=== PATIENT | female | born 1985 | race African-American/Black ===

== ENCOUNTER 2022-10-20 23:21 | Emergency (ER) | payer OTHER ==
[2022-10-20 23:29] VITALS: BP 139/96; PULSE 109; RESP 18; TEMP 98.6; BMI 49.9
[2022-10-21] MEDS ORDERED: KETOROLAC TROMETHAMINE 30 MG/1 ML VIAL IM ONE (00:09)
[2022-10-21] MEDS ORDERED: LIDOCAINE 5% TOPICAL PATCH TP ONE (00:10)
[2022-10-21] MEDS ORDERED: KETOROLAC TROMETHAMINE 30 MG/1 ML VIAL ONE (00:24)
== END 2022-10-21 01:50 | disposition home or self-care (01) ==
LOC: JER 23:21
PROC: 3E0233Z Introduction of Anti-inflammatory into Muscle, Percutaneous Approach (ICD-10-PCS; principal; 2022-10-21)
DX: M54.50 Low back pain, unspecified (principal)
CPT/HCPCS: 99284-25

== ENCOUNTER 2022-10-21 15:29 | Emergency (ER) | payer OTHER ==
[2022-10-21 15:34] VITALS: BP 120/74; PULSE 69; RESP 18; TEMP 98.1; BMI 49.9
[2022-10-21 16:48] LABS: BASO % 1.3 % (0-2.0); EOS % 1.1 % (0-4.5); HEMATOCRIT 38.1 % (32.4-45.2); HEMOGLOBIN 12.4 GM/dL (10.7-15.3); LYMPH % 37.1 % (8-40); MCH 25.1 pg (25.7-33.7); MCHC 32.6 g/dl (32.0-36.0); MEAN CELL VOLUME 76.8 fl (80-96); MEAN PLT VOLUME 7.9 fl (7.5-11.1); MONO % 7.6 % (3.8-10.2); NEUT % 52.9 % (42.8-82.8); PLATELET COUNT 371 10^3/uL (134-434); RBC 4.97 M/mm3 (3.60-5.2); RDW 14.4 % (11.6-15.6); WHITE BLOOD COUNT 7.9 K/mm3 (4.0-10.0)
[2022-10-21 16:54] LABS: PH,URINE 5.5 (5.0-8.0); URINE APPEARANCE CLEAR; URINE BILIRUBIN NEGATIVE (NEGATIVE); URINE COLOR YELLOW; URINE GLUCOSE (UA) NEGATIVE (NEGATIVE); URINE KETONE NEGATIVE (NEGATIVE); URINE LEUK ESTERASE NEGATIVE (NEGATIVE); URINE NITRITE NEGATIVE (NEGATIVE); URINE PROTEIN NEGATIVE (NEGATIVE); URINE UROBILINOGEN 0.2 mg/dL (0.2-1.0)
[2022-10-21 16:58] LABS: HCG,QUALITATIVE URINE Negative
[2022-10-21 17:13] LABS: POTASSIUM 4.4 mmol/L (3.5-5.1)
[2022-10-21 17:15] LABS: BLOOD UREA NITROGEN 21.7 mg/dL (7-18); CALCIUM 9.9 mg/dL (8.5-10.1)
[2022-10-21 17:19] LABS: CREATININE 0.9 mg/dL (0.55-1.3)
[2022-10-21] MEDS ORDERED: KETOROLAC TROMETHAMINE 30 MG/1 ML VIAL IM ONE (18:45)
[2022-10-21] MEDS ORDERED: KETOROLAC TROMETHAMINE 30 MG/1 ML VIAL ONE (19:11)
[2022-10-21] MEDS ORDERED: CYCLOBENZAPRINE HCL 10 MG TABLET (FP) ONE (19:11)
[2022-10-21] MEDS ORDERED: CYCLOBENZAPRINE HCL 5 MG TABLET PO SCH (19:15)
== END 2022-10-21 19:25 | disposition home or self-care (01) ==
LOC: JERFT 15:29
PROC: 3E0233Z Introduction of Anti-inflammatory into Muscle, Percutaneous Approach (ICD-10-PCS; principal; 2022-10-21)
DX: M54.50 Low back pain, unspecified (principal); R35.0 Frequency of micturition; K59.00 Constipation, unspecified
CPT/HCPCS: 36415; 74176-TC; 80048; 81003; 84703; 85025; 87086; 99284-25

== ENCOUNTER 2023-01-29 14:58 | Emergency (ER) | payer OTHER ==
[2023-01-29 15:05] VITALS: BMI 49.9
[2023-01-29 16:29] LABS: BASO % 0.8 % (0-2.0); EOS % 3.5 % (0-4.5); HEMATOCRIT 38.1 % (32.4-45.2); HEMOGLOBIN 12.5 GM/dL (10.7-15.3); LYMPH % 23.2 % (8-40); MCH 25.3 pg (25.7-33.7); MCHC 32.8 g/dl (32.0-36.0); MEAN CELL VOLUME 77.2 fl (80-96); MEAN PLT VOLUME 8.3 fl (7.5-11.1); MONO % 5.5 % (3.8-10.2); PLATELET COUNT 393 10^3/uL (134-434); RBC 4.93 M/mm3 (3.60-5.2); RDW 14.7 % (11.6-15.6); WHITE BLOOD COUNT 9.5 K/mm3 (4.0-10.0)
[2023-01-29 16:37] LABS: INR 1.07 (0.83-1.09); PROTHROMBIN TIME (PATIENT) 12.4 SEC (9.7-13.0)
[2023-01-29 16:40] LABS: ACTIVATED PTT 38.9 SECONDS (25.2-36.5)
[2023-01-29 17:00] LABS: ALBUMIN 3.3 g/dl (3.4-5.0); BLOOD UREA NITROGEN 12.6 mg/dL (7-18); CALCIUM 8.7 mg/dL (8.5-10.1); MAGNESIUM 2.1 mg/dL (1.8-2.4)
[2023-01-29 17:05] LABS: BILIRUBIN,TOTAL 0.2 mg/dL (0.2-1)
[2023-01-29] MEDS ORDERED: ALBUTEROL SO4 2.5/IPRATROPIUM 0.5 INH SOL 3 ML VIAL.NEB. NEB ONE ×2 (17:07→17:10)
[2023-01-29] MEDS ORDERED: PSEUDOEPHEDRINE HCL 30 MG TABLET PO ONE (17:10)
[2023-01-29] MEDS ORDERED: SODIUM CHLORIDE 0.9% 500 ML INFUS.BAG IV ONE (17:11)
[2023-01-29 17:23] LABS: PH,URINE 7.5 (5.0-8.0); URINE APPEARANCE Clear; URINE BILIRUBIN Negative (NEGATIVE); URINE COLOR Yellow; URINE GLUCOSE (UA) Negative (NEGATIVE); URINE KETONE Negative (NEGATIVE); URINE LEUK ESTERASE Negative (NEGATIVE); URINE NITRITE Negative (NEGATIVE); URINE PROTEIN Negative (NEGATIVE); URINE UROBILINOGEN 0.2 mg/dL (0.2-1.0)
[2023-01-29 18:19] VITALS: BP 155/79; PULSE 104; RESP 24; TEMP 97.7
== END 2023-01-29 18:24 | disposition home or self-care (01) ==
LOC: MERGE 14:58 → JER 14:58
PROC: 3E0F7GC Introduction of Other Therapeutic Substance into Respiratory Tract, Via Natural or Artificial Opening (ICD-10-PCS; principal; 2023-01-29)
DX: R06.02 Shortness of breath (principal); J40 Bronchitis, not specified as acute or chronic; Z20.822 Contact with and (suspected) exposure to COVID-19
CPT/HCPCS: 0241U-QW; 36415; 71045-TC-FY; 80053; 81003; 83735; 84484; 85025; 85379; 85610; 85730; 87086; 93005; 93010; 99285-25

== ENCOUNTER 2023-01-30 09:59 | Inpatient (IN) | payer OTHER ==
[2023-01-30] MEDS ORDERED: DEXAMETHASONE SOD PHOSPHATE 10 MG/1 ML VIAL IVPUSH ONE (10:30)
[2023-01-30] MEDS ORDERED: MAGNESIUM SULFATE IN WATER 2 GM/50 ML IVPB IVPB ONE ×2 (10:31→10:53)
[2023-01-30] MEDS ORDERED: DEXAMETHASONE SOD PHOSPHATE 10 MG/1 ML VIAL ONE (10:53)
[2023-01-30 11:05] LABS: VENOUS BASE EXCESS -0.1 mmol/L (-2-2); VENOUS O2 SATURATION 83.9 % (70-80); VENOUS PCO2 43.1 mmHg (38-52); VENOUS PH 7.383 (7.310-7.410)
[2023-01-30] MEDS: ALBUTEROL SO4 2.5/IPRATROPIUM 0.5 INH SOL 3 ML VIAL.NEB. NEB SCH ×6 (11:10→21:43)
[2023-01-30 11:18] LABS: BASO % 0.2 % (0-2.0); HEMATOCRIT 37.5 % (32.4-45.2); HEMOGLOBIN 12.2 GM/dL (10.7-15.3); MCH 26.6 pg (25.7-33.7); MCHC 32.5 g/dl (32.0-36.0); MEAN CELL VOLUME 81.9 fl (80-96); MEAN PLT VOLUME 8.3 fl (7.5-11.1); MONO % 2.5 % (3.8-10.2); NEUT % 84.3 % (42.8-82.8); PLATELET COUNT 370 10^3/uL (134-434); RBC 4.58 M/mm3 (3.60-5.2); RDW 14.3 % (11.6-15.6); WHITE BLOOD COUNT 11.6 K/mm3 (4.0-10.0)
[2023-01-30 11:23] LABS: INR 1.16 (0.83-1.09); PROTHROMBIN TIME (PATIENT) 13.4 SEC (9.7-13.0)
[2023-01-30 11:25] LABS: ACTIVATED PTT 39.6 SECONDS (25.2-36.5)
[2023-01-30 11:42] LABS: POTASSIUM 4.1 mmol/L (3.5-5.1)
[2023-01-30 11:44] LABS: CALCIUM 9.2 mg/dL (8.5-10.1)
[2023-01-30 11:45] LABS: ALBUMIN 3.5 g/dl (3.4-5.0); BLOOD UREA NITROGEN 10.2 mg/dL (7-18)
[2023-01-30 11:48] LABS: CREATININE 0.7 mg/dL (0.55-1.3)
[2023-01-30 11:49] LABS: TOT PROT 7.5 g/dl (6.4-8.2)
[2023-01-30 11:50] LABS: BILIRUBIN,TOTAL 0.3 mg/dL (0.2-1)
[2023-01-30 11:53] LABS: N-TERMINAL BNP 18.8 pg/ml (5-125)
[2023-01-30] MEDS ORDERED: IBUPROFEN 600 MG TABLET (FP) PO ONE ×2 (12:01→12:04)
[2023-01-30] MEDS ORDERED: ALBUTEROL SO4 2.5/IPRATROPIUM 0.5 INH SOL 3 ML VIAL.NEB. NEB ONE ×2 (12:03→15:37)
[2023-01-30] MEDS ORDERED: ACETAMINOPHEN 325 MG TABLET (FP) PO PRN (14:12)
[2023-01-30] MEDS ORDERED: ALBUTEROL SO4 0.042% IH SOL 1.25 MG/3 ML VIAL.NEB NEB PRN (16:40)
[2023-01-30] MEDS ORDERED: PSEUDOEPHEDRINE HCL 30 MG TABLET PO ONE (17:48)
[2023-01-30] MEDS ORDERED: guaiFENesin 600 MG TABLET.ER (FP) PO ONE (17:49)
[2023-01-30] MEDS ORDERED: PSEUDOEPHEDRINE HCL 60 MG TABLET ONE (17:52)
[2023-01-30] MEDS ORDERED: SODIUM CHLORIDE 0.9% 500 ML INFUS.BAG IV ONE (18:16)
[2023-01-30 20:15] VITALS: BMI 48.4
[2023-01-30] MEDS: ENOXAPARIN NA (PORCINE) 40 MG/0.4 ML DISP.SYRIN SQ SCH (21:37)
[2023-01-31] MEDS: ALBUTEROL SO4 2.5/IPRATROPIUM 0.5 INH SOL 3 ML VIAL.NEB. NEB SCH ×4 (07:10→20:59)
[2023-01-31] MEDS: guaiFENesin/D-METHORPHAN HB 10 ML UNIT-DOSE CUPS PO PRN ×2 (08:52→22:07)
[2023-01-31] MEDS: PANTOPRAZOLE 40 MG TABLET PO SCH (09:00)
[2023-01-31] MEDS: ENOXAPARIN NA (PORCINE) 40 MG/0.4 ML DISP.SYRIN SQ SCH ×2 (09:01→22:06)
[2023-01-31] MEDS: BUDESONIDE/FORMETEROL FUMARATE 160/4.5 mcg INHALER IH SCH ×2 (09:27→22:09)
[2023-01-31] MEDS ORDERED: methylPREDNISolone NA SUCC 40 MG/1 ML VIAL IVPUSH SCH (10:00)
[2023-01-31] MEDS ORDERED: predniSONE 20 MG TABLET (UD) PO SCH (10:00)
[2023-01-31 10:35] LABS: BASO % 0.1 % (0-2.0); EOS % 0.1 % (0-4.5); HEMATOCRIT 36.2 % (32.4-45.2); LYMPH % 8.7 % (8-40); MCH 26.1 pg (25.7-33.7); MCHC 33.2 g/dl (32.0-36.0); MEAN CELL VOLUME 78.6 fl (80-96); MEAN PLT VOLUME 8.2 fl (7.5-11.1); MONO % 4.5 % (3.8-10.2); NEUT % 86.6 % (42.8-82.8); PLATELET COUNT 402 10^3/uL (134-434); RBC 4.61 M/mm3 (3.60-5.2); RDW 14.7 % (11.6-15.6); WHITE BLOOD COUNT 19.9 K/mm3 (4.0-10.0)
[2023-01-31 10:39] LABS: INR 1.17 (0.83-1.09); PROTHROMBIN TIME (PATIENT) 13.6 SEC (9.7-13.0)
[2023-01-31 10:41] LABS: ACTIVATED PTT 35.3 SECONDS (25.2-36.5)
[2023-01-31 10:57] LABS: CALCIUM 9.1 mg/dL (8.5-10.1)
[2023-01-31 10:58] LABS: ALBUMIN 3.3 g/dl (3.4-5.0); BLOOD UREA NITROGEN 13.3 mg/dL (7-18)
[2023-01-31 11:01] LABS: PHOSPHOROUS 2.8 mg/dL (2.5-4.9)
[2023-01-31 11:02] LABS: BILIRUBIN,TOTAL 0.5 mg/dL (0.2-1)
[2023-01-31 11:03] LABS: TOT PROT 7.2 g/dl (6.4-8.2)
[2023-01-31] MEDS: predniSONE 20 MG TABLET (UD) PO SCH (22:03)
[2023-02-01] MEDS: ALBUTEROL SO4 2.5/IPRATROPIUM 0.5 INH SOL 3 ML VIAL.NEB. NEB SCH ×4 (08:20→20:43)
[2023-02-01 09:01] VITALS: RESP 20
[2023-02-01] MEDS: guaiFENesin/D-METHORPHAN HB 10 ML UNIT-DOSE CUPS PO PRN (09:38)
[2023-02-01] MEDS: PANTOPRAZOLE 40 MG TABLET PO SCH (09:38)
[2023-02-01] MEDS: predniSONE 20 MG TABLET (UD) PO SCH ×2 (09:38→21:30)
[2023-02-01] MEDS: ENOXAPARIN NA (PORCINE) 40 MG/0.4 ML DISP.SYRIN SQ SCH ×3 (09:38→21:38)
[2023-02-01] MEDS: BUDESONIDE/FORMETEROL FUMARATE 160/4.5 mcg INHALER IH SCH ×2 (09:39→21:31)
[2023-02-01 10:30] LABS: HEMATOCRIT 37.2 % (32.4-45.2); HEMOGLOBIN 11.6 GM/dL (10.7-15.3); MCH 24.8 pg (25.7-33.7); MCHC 31.1 g/dl (32.0-36.0); MEAN CELL VOLUME 79.6 fl (80-96); MEAN PLT VOLUME 8.3 fl (7.5-11.1); PLATELET COUNT 406 10^3/uL (134-434); RBC 4.67 M/mm3 (3.60-5.2); RDW 14.8 % (11.6-15.6); WHITE BLOOD COUNT 20.5 K/mm3 (4.0-10.0)
[2023-02-01 10:51] LABS: POTASSIUM 4.3 mmol/L (3.5-5.1)
[2023-02-01 10:56] LABS: ALBUMIN 3.2 g/dl (3.4-5.0); BLOOD UREA NITROGEN 16.8 mg/dL (7-18)
[2023-02-01 10:58] LABS: CREATININE 0.8 mg/dL (0.55-1.3)
[2023-02-01 11:00] LABS: BILIRUBIN,TOTAL 0.4 mg/dL (0.2-1)
[2023-02-01 11:11] LABS: ANISOCYTOSIS 2+; MACROCYTOSIS 0
[2023-02-01] MEDS: POLYETHYLENE GLYCOL (HEALTHYLAX) 3350 17 GM PACKET PO PRN (13:54)
[2023-02-01] MEDS: guaiFENesin/CODEINE 5 ML UNIT-DOSE CUPS PO PRN (13:54)
[2023-02-02] MEDS: ALBUTEROL SO4 2.5/IPRATROPIUM 0.5 INH SOL 3 ML VIAL.NEB. NEB SCH ×4 (07:40→20:27)
[2023-02-02 09:36] LABS: BASO % 0.1 % (0-2.0); HEMATOCRIT 36.9 % (32.4-45.2); MCH 25.2 pg (25.7-33.7); MCHC 32.5 g/dl (32.0-36.0); MEAN CELL VOLUME 77.7 fl (80-96); MEAN PLT VOLUME 8.2 fl (7.5-11.1); NEUT % 82.9 % (42.8-82.8); PLATELET COUNT 408 10^3/uL (134-434); RBC 4.75 M/mm3 (3.60-5.2); RDW 14.8 % (11.6-15.6); WHITE BLOOD COUNT 19.1 K/mm3 (4.0-10.0)
[2023-02-02] MEDS: predniSONE 20 MG TABLET (UD) PO SCH ×2 (09:58→21:32)
[2023-02-02] MEDS: guaiFENesin/CODEINE 5 ML UNIT-DOSE CUPS PO PRN ×2 (09:58→23:11)
[2023-02-02] MEDS: ENOXAPARIN NA (PORCINE) 40 MG/0.4 ML DISP.SYRIN SQ SCH ×2 (09:58→21:31)
[2023-02-02] MEDS: PANTOPRAZOLE 40 MG TABLET PO SCH (09:58)
[2023-02-02 09:59] LABS: POTASSIUM 4.2 mmol/L (3.5-5.1)
[2023-02-02] MEDS: BUDESONIDE/FORMETEROL FUMARATE 160/4.5 mcg INHALER IH SCH ×2 (09:59→21:39)
[2023-02-02 10:07] LABS: CALCIUM 9.5 mg/dL (8.5-10.1)
[2023-02-02 10:08] LABS: BLOOD UREA NITROGEN 18.4 mg/dL (7-18)
[2023-02-02 10:11] LABS: CREATININE 0.9 mg/dL (0.55-1.3)
[2023-02-02] MEDS: AZITHROMYCIN 250 MG TABLET PO SCH (14:40)
[2023-02-02 15:51] LABS: URINE APPEARANCE CLEAR; URINE BILIRUBIN NEGATIVE (NEGATIVE); URINE COLOR YELLOW; URINE GLUCOSE (UA) NEGATIVE (NEGATIVE); URINE KETONE NEGATIVE (NEGATIVE); URINE LEUK ESTERASE NEGATIVE (NEGATIVE); URINE NITRITE NEGATIVE (NEGATIVE); URINE PROTEIN NEGATIVE (NEGATIVE); URINE UROBILINOGEN 0.2 mg/dL (0.2-1.0)
[2023-02-02] MEDS: POLYETHYLENE GLYCOL (HEALTHYLAX) 3350 17 GM PACKET PO PRN (17:05)
[2023-02-03 05:41] VITALS: TEMP 98.6
[2023-02-03] MEDS: ALBUTEROL SO4 2.5/IPRATROPIUM 0.5 INH SOL 3 ML VIAL.NEB. NEB SCH ×2 (07:35→11:30)
[2023-02-03] MEDS: POLYETHYLENE GLYCOL (HEALTHYLAX) 3350 17 GM PACKET PO PRN (09:46)
[2023-02-03] MEDS: predniSONE 20 MG TABLET (UD) PO SCH (09:47)
[2023-02-03] MEDS: ENOXAPARIN NA (PORCINE) 40 MG/0.4 ML DISP.SYRIN SQ SCH (09:47)
[2023-02-03] MEDS: PANTOPRAZOLE 40 MG TABLET PO SCH (09:47)
[2023-02-03] MEDS: AZITHROMYCIN 250 MG TABLET PO SCH (09:51)
[2023-02-03] MEDS: BUDESONIDE/FORMETEROL FUMARATE 160/4.5 mcg INHALER IH SCH (09:53)
[2023-02-03] MEDS ORDERED: predniSONE 20 MG TABLET (UD) PO SCH (10:00)
[2023-02-03 11:20] LABS: HEMATOCRIT 37.1 % (32.4-45.2); HEMOGLOBIN 11.9 GM/dL (10.7-15.3); MCH 25.6 pg (25.7-33.7); MCHC 32.1 g/dl (32.0-36.0); MEAN CELL VOLUME 79.6 fl (80-96); MEAN PLT VOLUME 8.1 fl (7.5-11.1); PLATELET COUNT 428 10^3/uL (134-434); RBC 4.66 M/mm3 (3.60-5.2); RDW 14.5 % (11.6-15.6); WHITE BLOOD COUNT 19.7 K/mm3 (4.0-10.0)
[2023-02-03 12:36] LABS: ANISOCYTOSIS 0; HELMET CELLS 0; HOWELL-JOLLY BODIES 0; MACROCYTOSIS 0; OVALOCYTE 0; ROULEAU 0; SICKELED CELLS 0; TARGET CELLS 0; TEAR DROP CELLS 0; TOXIC GRANULATION 0
[2023-02-03 12:40] LABS: BLOOD UREA NITROGEN 15.1 mg/dL (7-18)
[2023-02-03 12:41] LABS: MAGNESIUM 2.1 mg/dL (1.8-2.4)
[2023-02-03 12:43] LABS: CREATININE 0.8 mg/dL (0.55-1.3); POTASSIUM 4.1 mmol/L (3.5-5.1)
[2023-02-03 13:07] VITALS: BP 124/72; PULSE 114
== END 2023-02-03 14:07 | disposition home or self-care (01) | DRG 202 ==
LOC: JER 09:59 → JERBED 14:09 → J5S 20:00 → OBSVTOIN 02-01 09:39
PROVIDERS: ADMIT Internal Medicine
DX: J45.901 Unspecified asthma with (acute) exacerbation (principal); Z68.42 Body mass index [BMI] 45.0-49.9, adult; E28.2 Polycystic ovarian syndrome; R73.03 Prediabetes; E66.01 Morbid (severe) obesity due to excess calories; R00.0 Tachycardia, unspecified; I10 Essential (primary) hypertension; E78.5 Hyperlipidemia, unspecified; G47.33 Obstructive sleep apnea (adult) (pediatric); R09.02 Hypoxemia
CPT/HCPCS: 0241U-QW; 36415; 71046-TC-FY; 71275-TC; 80048; 80053; 81003; 82803; 82962; 83735; 83880; 84100; 84703; 85025; 85610; 85730; 86850; 86900; 86901; 87086; 87633; 93005; 93010; 94640; 94761; 99285-25; G0378; J1100; Q9967

== ENCOUNTER 2023-02-09 12:41 | Emergency (ER) | payer OTHER ==
[2023-02-09 13:14] VITALS: RESP 17; BMI 49.9
[2023-02-09] MEDS ORDERED: SODIUM CHLORIDE 0.9% 500 ML INFUS.BAG IV ONE ×2 (14:59→15:54)
[2023-02-09 15:12] LABS: HEMATOCRIT 40.7 % (32.4-45.2); HEMOGLOBIN 12.6 GM/dL (10.7-15.3); MCH 24.5 pg (25.7-33.7); MEAN CELL VOLUME 79.2 fl (80-96); MEAN PLT VOLUME 7.8 fl (7.5-11.1); PLATELET COUNT 413 10^3/uL (134-434); RBC 5.14 M/mm3 (3.60-5.2); RDW 14.7 % (11.6-15.6)
[2023-02-09 15:15] LABS: URINE APPEARANCE CLEAR; URINE BILIRUBIN NEGATIVE (NEGATIVE); URINE COLOR YELLOW; URINE GLUCOSE (UA) NEGATIVE (NEGATIVE); URINE KETONE TRACE (NEGATIVE); URINE LEUK ESTERASE NEGATIVE (NEGATIVE); URINE NITRITE NEGATIVE (NEGATIVE); URINE PROTEIN NEGATIVE (NEGATIVE); URINE UROBILINOGEN 0.2 mg/dL (0.2-1.0)
[2023-02-09 15:37] LABS: POTASSIUM 5.3 mmol/L (3.5-5.1)
[2023-02-09 15:40] LABS: ALBUMIN 3.1 g/dl (3.4-5.0); BLOOD UREA NITROGEN 16.9 mg/dL (7-18)
[2023-02-09 15:44] LABS: BILIRUBIN,TOTAL 0.4 mg/dL (0.2-1); TOT PROT 6.8 g/dl (6.4-8.2)
[2023-02-09 15:50] LABS: CREATININE 0.9 mg/dL (0.55-1.3)
[2023-02-09 16:22] LABS: ANISOCYTOSIS 1+; MACROCYTOSIS 0
[2023-02-09 18:44] VITALS: BP 137/90; PULSE 95; TEMP 98.6
[2023-02-09 19:20] LABS: BASO % 0.4 % (0-2.0); EOS % 0.2 % (0-4.5); HEMATOCRIT 38.1 % (32.4-45.2); HEMOGLOBIN 12.4 GM/dL (10.7-15.3); LYMPH % 28.1 % (8-40); MCH 25.3 pg (25.7-33.7); MCHC 32.7 g/dl (32.0-36.0); MEAN CELL VOLUME 77.3 fl (80-96); MEAN PLT VOLUME 7.6 fl (7.5-11.1); MONO % 5.4 % (3.8-10.2); NEUT % 65.9 % (42.8-82.8); PLATELET COUNT 376 10^3/uL (134-434); RBC 4.93 M/mm3 (3.60-5.2); RDW 14.8 % (11.6-15.6); WHITE BLOOD COUNT 22.8 K/mm3 (4.0-10.0)
[2023-02-09 20:41] LABS: ANISOCYTOSIS 2+; MACROCYTOSIS 0
== END 2023-02-09 21:47 | disposition home or self-care (01) ==
LOC: JER 12:41
DX: R42 Dizziness and giddiness (principal); R43.9 Unspecified disturbances of smell and taste; R63.1 Polydipsia; R53.83 Other fatigue; R35.0 Frequency of micturition
CPT/HCPCS: 36415; 80053; 81003; 85025; 99283-25

== ENCOUNTER 2023-02-13 11:33 | Emergency (ER) | payer OTHER ==
[2023-02-13 11:53] VITALS: BP 155/99; PULSE 103; RESP 18; TEMP 98.8; BMI 49.9
[2023-02-13] MEDS ORDERED: BACITRACIN ZINC 15 GM TUBE TOPICAL OINTMENT ONE (13:51)
== END 2023-02-13 15:19 | disposition home or self-care (01) ==
LOC: JERFT 11:33 → JER 11:33 → JERFT 15:19
DX: I10 Essential (primary) hypertension (principal); R00.0 Tachycardia, unspecified
CPT/HCPCS: 93005; 93010; 99283-25

== ENCOUNTER 2023-03-01 19:06 | Emergency (ER) | payer OTHER ==
[2023-03-01 19:15] VITALS: BP 135/83; PULSE 88; RESP 20; TEMP 97.7; BMI 49.9
[2023-03-01 21:55] LABS: EPI CELLS 15 /uL (0-25.1); HYALINE CASTS 0 /uL (0-3.1); PH,URINE 5.5 (5.0-8.0); URINE APPEARANCE CLEAR; URINE BACTERIA 63 /uL (0-1359); URINE BILIRUBIN NEGATIVE (NEGATIVE); URINE COLOR YELLOW; URINE GLUCOSE (UA) NEGATIVE (NEGATIVE); URINE KETONE NEGATIVE (NEGATIVE); URINE LEUK ESTERASE TRACE (NEGATIVE); URINE NITRITE NEGATIVE (NEGATIVE); URINE PROTEIN NEGATIVE (NEGATIVE); URINE RBC 7 /uL (0-23.9); URINE UROBILINOGEN 0.2 mg/dL (0.2-1.0); URINE WBC 14 /uL (0-25.8)
[2023-03-01 21:56] LABS: HCG,QUALITATIVE URINE Negative
== END 2023-03-01 22:43 | disposition home or self-care (01) ==
LOC: JER 19:06
DX: R10.13 Epigastric pain (principal); K59.00 Constipation, unspecified
CPT/HCPCS: 74018-TC-FY; 81003; 84703; 87086; 99284-25

== ENCOUNTER 2023-03-07 20:29 | Emergency (ER) | payer OTHER ==
[2023-03-07 21:12] VITALS: BP 138/89; PULSE 98; RESP 16; TEMP 98.2; BMI 48.2
== END 2023-03-08 00:05 | disposition home or self-care (01) ==
LOC: JER 20:29
DX: I10 Essential (primary) hypertension (principal); R42 Dizziness and giddiness
CPT/HCPCS: 99281-25

== ENCOUNTER 2023-04-03 00:50 | Emergency (ER) | payer OTHER ==
[2023-04-03 01:07] VITALS: BP 118/83; PULSE 115; RESP 20; TEMP 98.3; BMI 49.1
[2023-04-03] MEDS ORDERED: SODIUM CHLORIDE 0.9% 500 ML INFUS.BAG IV ONE (02:13)
[2023-04-03 03:11] LABS: BASO % 0.9 % (0-2.0); EOS % 0.8 % (0-4.5); HEMATOCRIT 38.8 % (32.4-45.2); HEMOGLOBIN 12.3 GM/dL (10.7-15.3); LYMPH % 36.5 % (8-40); MCH 24.6 pg (25.7-33.7); MCHC 31.6 g/dl (32.0-36.0); MEAN CELL VOLUME 77.8 fl (80-96); MEAN PLT VOLUME 7.9 fl (7.5-11.1); NEUT % 61.8 % (42.8-82.8); PLATELET COUNT 432 10^3/uL (134-434); RBC 4.99 M/mm3 (3.60-5.2); RDW 14.7 % (11.6-15.6); WHITE BLOOD COUNT 8.1 K/mm3 (4.0-10.0)
[2023-04-03 03:18] LABS: INR 1.17 (0.83-1.09); PROTHROMBIN TIME (PATIENT) 13.5 SEC (9.7-13.0)
[2023-04-03 03:29] LABS: POTASSIUM 4.4 mmol/L (3.5-5.1)
[2023-04-03 03:32] LABS: ALBUMIN 3.5 g/dl (3.4-5.0); BLOOD UREA NITROGEN 16.9 mg/dL (7-18)
[2023-04-03 03:36] LABS: BILIRUBIN,TOTAL 0.3 mg/dL (0.2-1); CREATININE 0.9 mg/dL (0.55-1.3)
[2023-04-03 04:06] LABS: PH,URINE 5.5 (5.0-8.0); URINE APPEARANCE CLEAR; URINE BILIRUBIN NEGATIVE (NEGATIVE); URINE COLOR YELLOW; URINE GLUCOSE (UA) NEGATIVE (NEGATIVE); URINE KETONE NEGATIVE (NEGATIVE); URINE LEUK ESTERASE NEGATIVE (NEGATIVE); URINE NITRITE NEGATIVE (NEGATIVE); URINE PROTEIN NEGATIVE (NEGATIVE); URINE UROBILINOGEN 0.2 mg/dL (0.2-1.0)
[2023-04-03] MEDS ORDERED: MECLIZINE HCL 25 MG TABLET (FP) PO ONE (04:29)
[2023-04-03] MEDS ORDERED: MECLIZINE HCL 25 MG TABLET (FP) ONE (04:39)
== END 2023-04-03 04:55 | disposition home or self-care (01) ==
LOC: JER 00:50
DX: R42 Dizziness and giddiness (principal); R35.0 Frequency of micturition; R22.43 Localized swelling, mass and lump, lower limb, bilateral
CPT/HCPCS: 36415; 80053; 81003; 84443; 84703; 85025; 85610; 85730; 87086; 93005; 93010; 99284-25

== ENCOUNTER 2023-05-06 18:20 | Emergency (ER) | payer OTHER ==
[2023-05-06 18:26] VITALS: BP 152/94; PULSE 84; RESP 18; TEMP 97.9; BMI 48.4
[2023-05-06] MEDS ORDERED: SODIUM CHLORIDE 1,000 ML IV ONE (19:26)
[2023-05-06 20:10] LABS: BASO % 0.8 % (0-2.0); EOS % 0.5 % (0-4.5); HEMATOCRIT 39.1 % (32.4-45.2); HEMOGLOBIN 12.2 GM/dL (10.7-15.3); LYMPH % 32.2 % (8-40); MCH 24.1 pg (25.7-33.7); MCHC 31.3 g/dl (32.0-36.0); MEAN CELL VOLUME 76.9 fl (80-96); MEAN PLT VOLUME 7.7 fl (7.5-11.1); MONO % 5.3 % (3.8-10.2); NEUT % 61.2 % (42.8-82.8); PLATELET COUNT 439 10^3/uL (134-434); RBC 5.08 M/mm3 (3.60-5.2); RDW 14.9 % (11.6-15.6)
[2023-05-06 20:13] LABS: URINE APPEARANCE CLEAR; URINE BILIRUBIN NEGATIVE (NEGATIVE); URINE COLOR YELLOW; URINE GLUCOSE (UA) NEGATIVE (NEGATIVE); URINE KETONE NEGATIVE (NEGATIVE); URINE LEUK ESTERASE NEGATIVE (NEGATIVE); URINE NITRITE NEGATIVE (NEGATIVE); URINE PROTEIN NEGATIVE (NEGATIVE); URINE UROBILINOGEN 0.2 mg/dL (0.2-1.0)
[2023-05-06 20:40] LABS: BLOOD UREA NITROGEN 12.1 mg/dL (7-18); CALCIUM 9.3 mg/dL (8.5-10.1)
[2023-05-06 20:41] LABS: ALBUMIN 3.4 g/dl (3.4-5.0)
[2023-05-06 20:44] LABS: CREATININE 0.8 mg/dL (0.55-1.3)
[2023-05-06 20:45] LABS: BILIRUBIN,TOTAL 0.3 mg/dL (0.2-1); TOT PROT 6.9 g/dl (6.4-8.2)
[2023-05-06 21:16] LABS: HCG,QUALITATIVE URINE Negative
== END 2023-05-06 21:56 | disposition home or self-care (01) ==
LOC: JER 18:20
PROC: 3E0337Z Introduction of Electrolytic and Water Balance Substance into Peripheral Vein, Percutaneous Approach (ICD-10-PCS; principal; 2023-05-06)
DX: R06.02 Shortness of breath (principal); R42 Dizziness and giddiness; R07.9 Chest pain, unspecified; R00.2 Palpitations; R05.9 Cough, unspecified; Z20.822 Contact with and (suspected) exposure to COVID-19
CPT/HCPCS: 0241U-QW; 36415; 71046-TC-FY; 80053; 81003; 84484; 84703; 85025; 93005; 93010; 99285-25

== ENCOUNTER 2023-05-28 00:28 | Emergency (ER) | payer OTHER ==
[2023-05-28 00:45] VITALS: BP 142/97; PULSE 73; RESP 20; TEMP 97.7; BMI 47.4
[2023-05-28] MEDS ORDERED: LACTATED RINGERS SOLUTION 1,000 ML/1,000 ML INFUS.BAG IV SCH (03:30)
== END 2023-05-28 04:35 | disposition home or self-care (01) ==
LOC: JER 00:28
DX: I10 Essential (primary) hypertension (principal); R42 Dizziness and giddiness
CPT/HCPCS: 71046-TC-FY; 93005; 93010; 99284-25

== ENCOUNTER 2023-06-16 04:26 | Day surgery (SDC) | payer OTHER ==
[2023-06-16] MEDS ORDERED: ALBUTEROL SO4 HFA INHALER IH ONE (08:19)
[2023-06-16 08:20] VITALS: BMI 52.9
[2023-06-16] MEDS ORDERED: TETRACAINE/BENZOCAINE/BUTAMBEN 20 GM SPR TP ONE (08:21)
[2023-06-16 09:01] VITALS: TEMP 98
[2023-06-16 09:33] VITALS: BP 107/53; PULSE 90; RESP 19
== END 2023-06-16 09:47 | disposition home or self-care (01) ==
LOC: JASU-ENDO 04:26
PROVIDERS: ATTEND Internal Medicine Gastroenterology
PROC: 0DB78ZX Excision of Stomach, Pylorus, Via Natural or Artificial Opening Endoscopic, Diagnostic (ICD-10-PCS; 2023-06-16)
PROC: 0DB68ZX Excision of Stomach, Via Natural or Artificial Opening Endoscopic, Diagnostic (ICD-10-PCS; principal; 2023-06-16 09:00)
DX: Z01.818 Encounter for other preprocedural examination (principal); K29.50 Unspecified chronic gastritis without bleeding; B96.81 Helicobacter pylori [H. pylori] as the cause of diseases classified elsewhere; E66.01 Morbid (severe) obesity due to excess calories; Z68.43 Body mass index [BMI] 50.0-59.9, adult
CPT/HCPCS: 88305-TC; 88342-TC

== ENCOUNTER 2023-09-13 06:18 | Emergency (ER) | payer OTHER ==
[2023-09-13 06:25] VITALS: BP 132/70; PULSE 83; RESP 18; TEMP 98.2; BMI 49.1
[2023-09-13] MEDS ORDERED: LIDOCAINE 4% PATCH TP ONE (07:46)
[2023-09-13 08:39] LABS: POTASSIUM 4.3 mmol/L (3.5-5.1)
[2023-09-13 08:41] LABS: BASO % 0.7 % (0-2.0); CALCIUM 9.3 mg/dL (8.5-10.1); EOS % 1.2 % (0-4.5); HEMATOCRIT 36.6 % (32.4-45.2); HEMOGLOBIN 11.9 GM/dL (10.7-15.3); LYMPH % 38.2 % (8-40); MCH 25.2 pg (25.7-33.7); MCHC 32.4 g/dl (32.0-36.0); MEAN CELL VOLUME 77.8 fl (80-96); MEAN PLT VOLUME 7.9 fl (7.5-11.1); MONO % 7.5 % (3.8-10.2); NEUT % 52.4 % (42.8-82.8); PLATELET COUNT 328 10^3/uL (134-434); RBC 4.71 M/mm3 (3.60-5.2); RDW 14.6 % (11.6-15.6); WHITE BLOOD COUNT 6.4 K/mm3 (4.0-10.0)
[2023-09-13 08:42] LABS: ALBUMIN 3.4 g/dl (3.4-5.0)
[2023-09-13 08:45] LABS: CREATININE 0.7 mg/dL (0.55-1.3)
[2023-09-13 08:46] LABS: TOT PROT 6.6 g/dl (6.4-8.2)
[2023-09-13 08:50] LABS: BILIRUBIN,TOTAL 0.4 mg/dL (0.2-1)
[2023-09-13 11:37] LABS: URINE APPEARANCE CLEAR; URINE BILIRUBIN NEGATIVE (NEGATIVE); URINE COLOR YELLOW; URINE GLUCOSE (UA) NEGATIVE (NEGATIVE); URINE KETONE NEGATIVE (NEGATIVE); URINE LEUK ESTERASE NEGATIVE (NEGATIVE); URINE NITRITE NEGATIVE (NEGATIVE); URINE PROTEIN NEGATIVE (NEGATIVE); URINE UROBILINOGEN 0.2 mg/dL (0.2-1.0)
== END 2023-09-13 12:45 | disposition home or self-care (01) ==
LOC: JER 06:18
DX: R07.89 Other chest pain (principal); M25.512 Pain in left shoulder; M25.472 Effusion, left ankle; M79.662 Pain in left lower leg
CPT/HCPCS: 36415; 71045-TC-FY; 80053; 81003; 84484; 84703; 85025; 87077; 87086; 93005; 93010; 93971-TC; 99285-25

== ENCOUNTER → 2024-01-25 | Day surgery (SDC) | payer OTHER | END | disposition home or self-care (01) | LOC: JRADIR 10:55 | PROVIDERS: ATTEND Internal Medicine Endocrinology, Diabetes & Metabolism | PROC: 0GBG3ZX Excision of Left Thyroid Gland Lobe, Percutaneous Approach, Diagnostic (ICD-10-PCS; principal; 2024-01-25) | DX: E04.1 Nontoxic single thyroid nodule (principal) | CPT/HCPCS: 10005; 76942; 88173; 88305-TC ==

== ENCOUNTER 2024-05-02 04:17 | Day surgery (SDC) | payer OTHER ==
[2024-04-30 16:37] VITALS: BMI 51.5
[2024-05-02] MEDS ORDERED: LIDOCAINE 1%/EPI 1:100000 (20 ML MULTI DOSE VIAL) ONE (07:24)
[2024-05-02] MEDS ORDERED: PROPOFOL 40 ML ONE (07:42)
[2024-05-02] MEDS ORDERED: MIDAZOLAM HCL 2 MG/2 ML SINGLE DOSE VIAL ONE (07:43)
[2024-05-02] MEDS ORDERED: SUCCINYLCHOLINE CHLORIDE 200 MG/10 ML SYRINGE ONE (07:49)
[2024-05-02] MEDS ORDERED: ROCURONIUM BROMIDE 50 MG/5 ML SYRINGE ONE (08:38)
[2024-05-02] MEDS ORDERED: HYDROmorphone HCl 2 MG/ML VIAL ONE (08:49)
[2024-05-02] MEDS ORDERED: PROPOFOL 20 ML ONE (08:54)
[2024-05-02] MEDS: ceFAZolin SODIUM 1 GM VIAL IVPB ONE (08:56)
[2024-05-02] MEDS: BUPIVACAINE HCL/PF 0.5% (5 MG/ML) 30 ML VIAL IJ ONE ×3 (09:13)
[2024-05-02] MEDS: LIDOCAINE 1%/EPI 1:100000 (20 ML MULTI DOSE VIAL) IJ ONE ×3 (09:13)
[2024-05-02] MEDS: MICROFIBRILLAR COLLAGEN 1 GM EACH TP ONE (09:34)
[2024-05-02] MEDS ORDERED: oxyCODONE HCL 5 MG TABLET PO PRN (10:20)
[2024-05-02] MEDS ORDERED: LACTATED RINGERS SOLUTION 1,000 ML IV SCH (10:30)
[2024-05-02] MEDS: ACETAMINOPHEN 500 MG TABLET (FP) PO ONE ×2 (16:15→16:26)
[2024-05-02 16:24] VITALS: RESP 18
[2024-05-02] MEDS ORDERED: ALBUTEROL SO4 HFA INHALER IH PRN (18:02)
[2024-05-02] MEDS: LACTATED RINGERS SOLUTION 1,000 ML IV SCH (21:53)
[2024-05-02] MEDS: ACETAMINOPHEN 1000 MG/100 ML BAG IVPB SCH (22:02)
[2024-05-02] MEDS: FLUTICASONE/SALMETEROL (WIXELA) 100 MCG/50 MCG DISKUS IH SCH (23:45)
[2024-05-03] MEDS ORDERED: oxyCODONE HCL 5 MG TABLET PO PRN (07:47)
[2024-05-03] MEDS: ACETAMINOPHEN 500 MG TABLET (FP) PO PRN (11:02)
[2024-05-03 12:06] VITALS: BP 116/80; PULSE 96; TEMP 98.8
== END 2024-05-03 12:42 | disposition home or self-care (01) ==
LOC: JASUSAT 04:17 → JASU-SURG 04:17 → SUATTDRO 04:17 → J5S 18:20 → JASUSAT 05-03 12:42
PROVIDERS: ATTEND Internal Medicine
PROC: 0GTG0ZZ Resection of Left Thyroid Gland Lobe, Open Approach (ICD-10-PCS; principal; 2024-05-02 08:00)
DX: E04.1 Nontoxic single thyroid nodule (principal); E07.89 Other specified disorders of thyroid
CPT/HCPCS: 71045-TC-FY; 81025; 88307-TC; 94760; J0131